=== PATIENT | male | born 1985 | race Two or more races ===

== ENCOUNTER 2018-04-19 17:11 | Emergency (ER) | payer OTHER ==
[~2018-04-19] VITALS: Ht 175.3 cm; Wt 80.7 kg
[2018-04-19 17:18] VITALS: BP 144/90
[2018-04-19] MEDS ORDERED: ZOLOFT25 MG ORAL (17:22)
[2018-04-19] MEDS ORDERED: DILANTIN100 MG ORAL (17:22)
[2018-04-19] MEDS ORDERED: SEROQUEL50 MG ORAL (17:22)
--- NOTE | 2018-04-19 17:26 | Emergency Room Report ---
History of Present Illness General Chief Complaint: Seizure Source: Patient, EMS Present Illness HPI Patient is a 33-year-old male brought in by EMS after a witnessed seizure. The patient had prior history of seizure disorder and had prior brain surgery at [facility] for hematoma. The patient reports being on Keppra as well as Dilantin but was not compliant with his medications as morning. He reports having a moderate headache. He reports having some chest discomfort.Patient denied any recent illness. Allergies: Coded Allergies: No Known Allergies (Unverified , 04/19/18) Patient History Past Medical History: seizures, psych hx Reviewed Nursing Documentation: PMH: Agreed; PSxH: Agreed Nursing Documentation-PMH Hx Neurological Problems: Yes - brain surgery 2013 Hx Seizures: Yes Review of Systems All Other Systems: negative except mentioned in HPI Physical Exam Vital Signs Date Time Temp Pulse Resp B/P (MAP) Pulse Ox O2 Delivery O2 Flow Rate FiO2 04/19/18 17:08 98.8 130 18 144/90 100 98.8 Sp02 EP Interpretation: reviewed, normal General Appearance: normal inspection, well appearing, no apparent distress, alert, GCS 15, non-toxic Head: other - forehead swelling ENT: normal ENT inspection, hearing grossly normal, normal voice Neck: normal inspection, full range of motion, supple, no bony tend Respiratory: normal inspection, lungs clear, normal breath sounds, no respiratory distress, no retraction, no wheezing Cardiovascular #1: no edema, tachycardia Gastrointestinal: normal inspection, normal bowel sounds, non tender, soft, no guarding, no hernia Genitourinary: no CVA tenderness Musculoskeletal: normal inspection, back normal, normal range of motion Neurologic: normal inspection, alert, oriented x3, responsive, relay operator III-XII nml as tested, speech normal Psychiatric: normal inspection, judgement/insight normal, mood/affect normal Skin: normal inspection, normal color, no rash Medical Decision Making Diagnostic Impression: Primary Impression: Epileptic seizure, generalized Additional Impressions: Hepatitis Subtherapeutic phenytoin level ER Course patient presented for seizure. Differential diagnosis included cysticercosis, electrolyte abnormality, mass lesion, or cranial hemorrhage.A CT of head and cervical spine were ordered due to patient's pain. The CT of head read by radiology showed no evidence of acute intra-cranial hemorrhage or acute fracture. CT of cervical spine showed no evidence of acute hemorrhage. Because of complexity of patient's case laboratory testing and imaging studies were ordered.Patient is advised to follow-up with his neurologist and to resume taking his seizure medications. Liver function tests are noted be abnormal the due to patient's recent alcohol use. The patient was given IV Keppra as well as IV Zofran for nausea Patient is advised to stop drinking alcohol.The patient is advised to follow up with primary care doctor in 1-2 days. Patient is advised to return if any worsening condition or if any changes in status that are concerning. This report is dictated with [employer] film waxer software which may occasionally lead to discrepancies related to use of this software. Labs Test 04/19/18 17:30 04/19/18 19:00 White Blood Count 3.9 K/UL (4.8-10.8) Red Blood Count 4.24 M/UL (4.70-6.10) Hemoglobin 14.2 G/DL (14.2-18.0) Hematocrit 41.3 % (42.0-52.0) Mean Corpuscular Volume 97 FL (80-99) Mean Corpuscular Hemoglobin 33.4 PG (27.0-31.0) Mean Corpuscular Hemoglobin Concent 34.3 G/DL (32.0-36.0) Red Cell Distribution Width 12.3 % (11.6-14.8) Platelet Count 72 K/UL (150-450) Mean Platelet Volume 6.5 FL (6.5-10.1) Neutrophils (%) (Auto) % (45.0-75.0) Lymphocytes (%) (Auto) % (20.0-45.0) Monocytes (%) (Auto) % (1.0-10.0) Eosinophils (%) (Auto) % (0.0-3.0) Basophils (%) (Auto) % (0.0-2.0) Differential Total Cells Counted 100 Neutrophils % (Manual) 66 % (45-75) Lymphocytes % (Manual) 25 % (20-45) Monocytes % (Manual) 8 % (1-10) Eosinophils % (Manual) 0 % (0-3) Basophils % (Manual) 0 % (0-2) Band Neutrophils 1 % (0-8) Platelet Estimate Decreased Platelet Morphology Normal Macrocytosis 1+ Sodium Level 137 MMOL/L (136-145) Potassium Level 3.4 MMOL/L (3.5-5.1) Chloride Level 94 MMOL/L (98-107) Carbon Dioxide Level 20 MMOL/L (21-32) Anion Gap 23 mmol/L (5-15) Blood Urea Nitrogen 9 mg/dL (7-18) Creatinine 0.9 MG/DL (0.55-1.30) Estimat Glomerular Filtration Rate > 60 mL/min (>60) Glucose Level 102 MG/DL (74-106) Calcium Level 9.6 MG/DL (8.5-10.1) Total Bilirubin 0.9 MG/DL (0.2-1.0) Aspartate Amino Transf (AST/SGOT) 505 U/L (15-37) Alanine Aminotransferase (ALT/SGPT) 288 U/L (12-78) Alkaline Phosphatase 104 U/L (46-116) Total Protein 8.8 G/DL (6.4-8.2) Albumin 4.6 G/DL (3.4-5.0) Globulin 4.2 g/dL Albumin/Globulin Ratio 1.1 (1.0-2.7) Phenytoin (Dilantin) Level 6.5 ug/mL (10-20) Valproic Acid (Depakene) Level < 3 MCG/ML (50-100) Urine Color Yellow Urine Appearance Clear Urine pH 6 (4.5-8.0) Urine Specific Murphy 1.020 (1.005-1.035) Urine Protein 3+ (NEGATIVE) Urine Glucose (UA) Negative (NEGATIVE) Urine Ketones 3+ (NEGATIVE) Urine Blood 3+ (NEGATIVE) Urine Nitrite Negative (NEGATIVE) Urine Bilirubin Negative (NEGATIVE) Urine Urobilinogen Normal MG/DL (0.0-1.0) Urine Leukocyte Esterase Negative (NEGATIVE) Urine RBC 0-2 /HPF (0 - 0) Urine WBC 0-2 /HPF (0 - 0) Urine Squamous Epithelial Cells Occasional /LPF Urine Bacteria Occasional /HPF (NONE) Urine Opiates Screen Negative (NEGATIVE) Urine Barbiturates Screen Negative (NEGATIVE) Phencyclidine (PCP) Screen Negative (NEGATIVE) Urine Amphetamines Screen Negative (NEGATIVE) Urine Benzodiazepines Screen Negative (NEGATIVE) Urine Cocaine Screen Negative (NEGATIVE) Urine Marijuana (THC) Screen Negative (NEGATIVE) EKG Diagnostic Results Rate: tachycardiac - 107 Rhythm: NSR ST Segments: no acute changes Last Vital Signs Date Time Temp Pulse Resp B/P (MAP) Pulse Ox O2 Delivery O2 Flow Rate FiO2 04/19/18 17:08 98.8 130 18 144/90 100 98.8 Status: improved Disposition: HOME, SELF-CARE Condition: Stable Daniel Saucedo MD Apr 19, 2018 17:26
[2018-04-19] MEDS ORDERED: levETIRAcetam 1,000mg/NS100ml 100 ML IVPB ONE (17:30)
[2018-04-19 17:43] LABS: HEMATOCRIT 41.3 % (42.0-52.0); HEMOGLOBIN 14.2 G/DL (14.2-18.0); MEAN CORPUSCULAR VOLUME 97 FL (80-99); PLATELET COUNT 72 K/UL (150-450); RED BLOOD COUNT 4.24 M/UL (4.70-6.10); RED CELL DISTRIBUTION WIDTH 12.3 % (11.6-14.8); WHITE BLOOD COUNT 3.9 K/UL (4.8-10.8)
[2018-04-19 17:54] LABS: ANION GAP 23 mmol/L (5-15); BLOOD UREA NITROGEN 9 mg/dL (7-18); CALCIUM 9.6 MG/DL (8.5-10.1); CARBON DIOXIDE 20 MMOL/L (21-32); CHLORIDE 94 MMOL/L (98-107); CREATININE 0.9 MG/DL (0.55-1.30); POTASSIUM 3.4 MMOL/L (3.5-5.1); SODIUM 137 MMOL/L (136-145)
[2018-04-19 18:01] LABS: ALANINE AMINOTRANSFERASE 288 U/L (12-78); ALBUMIN 4.6 G/DL (3.4-5.0); ALBUMIN/GLOBULIN RATIO 1.1 (1.0-2.7); ALKALINE PHOSPHATASE 104 U/L (46-116); ASPARTATE AMINO TRANSFERASE 505 U/L (15-37); BILIRUBIN,TOTAL 0.9 MG/DL (0.2-1.0)
[2018-04-19] MEDS ORDERED: Phenytoin 500 MG in NS 110 ML IVPB ONE (19:00)
[2018-04-19 19:09] LABS: APPEARANCE,URINE CLEAR; BILIRUBIN, URINE NEGATIVE (NEGATIVE); GLUCOSE, URINE (UA) NEGATIVE (NEGATIVE); KETONES,URINE 3+ (NEGATIVE); LEUKOCYTE ESTERASE ,URINE NEGATIVE (NEGATIVE); NITRITE,URINE NEGATIVE (NEGATIVE); PH,URINE 6 (4.5-8.0); PROTEIN,URINE 3+ (NEGATIVE); UROBILINOGEN,URINE NORMAL MG/DL (0.0-1.0)
[2018-04-19 19:10] LABS: COLOR,URINE YELLOW
[2018-04-19 19:25] VITALS: BP 138/88
--- NOTE | 2018-04-19 20:30 | Diagnostic Imaging Report ---
EXAM: CT Head Without Intravenous Contrast CLINICAL HISTORY: PAIN TECHNIQUE: Axial computed tomography images of the head/brain without intravenous contrast. CTDI is 70 mGy and DLP is 1453 mGy-cm. One or more of the following dose reduction techniques were used: automated exposure control, adjustment of the mA and/or kV according to patient size, use of iterative reconstruction technique. COMPARISON: No relevant prior studies available. FINDINGS: Brain: No acute intracranial hemorrhage or cortical ischemia. Left frontal small 2 mm extra-axial density likely chronic or postop. Ventricles: Unremarkable. No ventriculomegaly. Bones/joints: No acute skull fracture. Left frontal skull chronic craniotomy. Soft tissues: Unremarkable. Sinuses: Paranasal sinus mucosal thickening. Mastoid air cells: Unremarkable as visualized. IMPRESSION: 1. No acute intracranial abnormality or skull fracture. 2. Paranasal sinus mucosal thickening.
--- NOTE | 2018-04-19 20:30 | Diagnostic Imaging Report ---
EXAM: CT Cervical Spine Without Intravenous Contrast CLINICAL HISTORY: PAIN TECHNIQUE: Axial computed tomography images of the cervical spine without intravenous contrast. CTDI is 18 mGy and DLP is 411 mGy-cm. One or more of the following dose reduction techniques were used: automated exposure control, adjustment of the mA and/or kV according to patient size, use of iterative reconstruction technique. COMPARISON: No relevant prior studies available. FINDINGS: Vertebrae: No acute fracture or subluxation. Discs/spinal canal/neural foramina: No acute findings. Soft tissues: Unremarkable. IMPRESSION: No acute fracture or subluxation.
[2018-04-19 22:15] VITALS: BP 134/80
[2018-04-19] MEDS ORDERED: ATIVAN1 MG ORAL (22:43)
[2018-04-19] MEDS ORDERED: LORazepam Inj 2mg/ml 1ml IM ONE (22:45)
[2018-04-19 23:06] VITALS: BP 141/90
[2018-04-19 23:11] VITALS: BP 134/80
--- NOTE | 2018-04-23 19:12 | Cardiology Report ---
APPROVED REPORT EKG Measurement Heart [id number] [place] [id number] Sinus tachycardia Otherwise normal ECG
== END 2018-04-19 23:15 | disposition home or self-care (01) ==
LOC: EDBD 17:11 → EMR 17:30
DX: G40.909 Epilepsy, unspecified, not intractable, without status epilepticus (principal); K75.9 Inflammatory liver disease, unspecified; R89.2 Abnormal level of other drugs, medicaments and biological substances in specimens from other organs, systems and tissues; R51 Headache; R00.0 Tachycardia, unspecified
CPT/HCPCS: 36415; 70450; 72125; 80053; 80164; 80185; 80307; 81003; 85007; 85025; 93005; 96365; 96372; 96375; 99284; J1165; J1953; J2405